=== PATIENT | male | born 1940 | race African-American/Black ===

== ENCOUNTER 2016-12-21 18:09 | Inpatient (IN) | payer MEDICARE, OTHER ==
[~2016-12-21] VITALS: Ht 182.9 cm; Wt 60.7 kg
[2016-12-21] MEDS ORDERED: OPTIRAY 350 100 ML VIAL HMH IV ONE (18:11)
[2016-12-22] MEDS ORDERED: SALINE FLUSH 10 ML FLUSH PRN (00:55)
[2016-12-22 02:07] VITALS: BP_SYST 138; RESP 18; TEMP 97.2
[2016-12-22 02:08] VITALS: BMI 18.2
[2016-12-22 02:46] VITALS: RESP 20
[2016-12-22] MEDS: SALINE FLUSH 10 ML FLUSH SCH ×3 (03:18→20:00)
[2016-12-22] MEDS: SODIUM CHLORIDE 0.9% FLUSH BAG 500 ML IV SCH (05:46)
[2016-12-22] MEDS: PANTOPRAZOLE 40 MG TAB PO SCH (06:27)
[2016-12-22 08:15] VITALS: BP_SYST 158; RESP 18; TEMP 97.4
[2016-12-22 08:19] VITALS: Ht 182.9 cm; Wt 60.7 kg
[2016-12-22] MEDS: Finasteride 5 MG TAB PO SCH (09:15)
[2016-12-22] MEDS: DOCUSATE SOD 100 MG CAP PO SCH ×3 (09:15→21:20)
[2016-12-22] MEDS: CLOPIDOGREL 75 MG TAB PO SCH (09:15)
[2016-12-22] MEDS: amLODIPine 5 MG TAB PO SCH (09:16)
[2016-12-22] MEDS: ALLOPURINOL 100 MG TAB PO SCH (09:16)
[2016-12-22] MEDS: ENOXAPARIN 30 MG/0.3 ML SYR SUBQ SCH (09:16)
[2016-12-22] MEDS: Carvedilol 6.25 MG TAB PO SCH ×2 (09:16→21:20)
[2016-12-22] MEDS ORDERED: SODIUM CHLORIDE 0.9% 1,000 ML IV SCH (10:10)
[2016-12-22 16:17] VITALS: BP_SYST 158; RESP 16; TEMP 98.3
[2016-12-22 19:54] VITALS: BP_SYST 144; RESP 18; TEMP 98
[2016-12-22] MEDS ORDERED: TAMSULOSIN 0.4 MG CAP PO SCH (21:00)
[2016-12-22] MEDS ORDERED: Atorvastatin 20 MG TAB PO SCH (21:00)
[2016-12-22 22:58] VITALS: BP_SYST 144; RESP 16; TEMP 97.4
[2016-12-23 03:54] VITALS: BP_SYST 147; RESP 18; TEMP 98.3
[2016-12-23] MEDS: SODIUM CHLORIDE 0.9% FLUSH BAG 500 ML IV SCH (05:10)
[2016-12-23 07:38] VITALS: BP_SYST 132; RESP 18; TEMP 97.8
[2016-12-23] MEDS ORDERED: MISSING DOSE XX ONE (08:50)
[2016-12-23] MEDS: Carvedilol 6.25 MG TAB PO SCH (10:01)
[2016-12-23] MEDS: Finasteride 5 MG TAB PO SCH (10:01)
[2016-12-23] MEDS: CLOPIDOGREL 75 MG TAB PO SCH (10:01)
[2016-12-23] MEDS: DOCUSATE SOD 100 MG CAP PO SCH ×2 (10:01→17:09)
[2016-12-23] MEDS: ALLOPURINOL 100 MG TAB PO SCH (10:01)
[2016-12-23] MEDS: amLODIPine 5 MG TAB PO SCH (10:01)
[2016-12-23] MEDS: ENOXAPARIN 30 MG/0.3 ML SYR SUBQ SCH (10:02)
[2016-12-23] MEDS: SALINE FLUSH 10 ML FLUSH SCH (10:02)
[2016-12-23] MEDS: PANTOPRAZOLE 40 MG TAB PO SCH (10:10)
[2016-12-23 11:42] VITALS: BP_SYST 124; RESP 18; TEMP 97.7
[2016-12-23] MEDS ORDERED: KCL CR 10 MEQ CAP PO ONE (12:25)
[2016-12-23 16:18] VITALS: BP_SYST 109; RESP 16; TEMP 98.7
[2016-12-23 16:38] VITALS: BP_SYST 109; RESP 16; TEMP 98.7
== END 2016-12-23 18:13 | disposition home or self-care (01) | DRG 312 ==
LOC: ENRESERVDT → ENRESERVTM → ER 18:09 → EMR 18:10 → PCU2 12-22 02:04 → OBSVTOIN 12-22 20:52 → ENPENDDIS 12-22 20:52
PROVIDERS: ADMIT Internal Medicine; ATTEND Internal Medicine
DX: R55 Syncope and collapse (principal); N17.9 Acute kidney failure, unspecified; R64 Cachexia; I69.354 Hemiplegia and hemiparesis following cerebral infarction affecting left non-dominant side; Z68.1 Body mass index [BMI] 19.9 or less, adult; E86.0 Dehydration; I10 Essential (primary) hypertension; N40.0 Benign prostatic hyperplasia without lower urinary tract symptoms; R42 Dizziness and giddiness; F10.21 Alcohol dependence, in remission
CPT/HCPCS: 36415; 70450; 70551; 71010; 71260; 80053; 81003; 82553; 82947; 84484; 85025; 85379; 85610; 85730; 93005; 93306; 94799; 99219; 99232